=== PATIENT | female | born 1945 | race Caucasian/White ===

== ENCOUNTER 2021-02-26 15:19 | Outpatient (CLI) | payer MEDICARE, BC, SELFPAY ==
--- NOTE | 2021-02-26 15:36 | XRR_ITS ---
PROCEDURE INFORMATION: Exam: XR Right Knee Exam date and time: 02/26/2021 3:36 PM Age: 75 years old Clinical indication: Pain; Knee; Right; Additional info: Pain in right knee (m25.561) TECHNIQUE: Imaging protocol: XR Right knee. Views: 3 views. COMPARISON: No relevant prior studies available. FINDINGS: Bones/joints: No fracture or other acute abnormalities are seen. Mild DJD is present with joint space narrowing and tiny osteophyte formation. There is no bony destruction. Soft tissues: Surgical clips are present in the soft tissues. XR/XR knee RT 3V* [id number] IMPRESSION: Mild DJD. No acute abnormality. Radiation Dose CTDIVOL = (mGy): DLP = (mGy-cm)
== END 2021-02-26 15:20 | disposition home or self-care (01) ==
LOC: RAD 15:25
PROVIDERS: PCP Family Medicine; Visit Provider Family Medicine
DX: M25.561 Pain in right knee (principal)
CPT/HCPCS: 73562